=== PATIENT | female | born 1930 ===

== ENCOUNTER 2018-04-12 13:42 | Emergency (ER) | payer MEDICARE ==
[~2018-04-12] VITALS: Ht 167.6 cm; Wt 68.2 kg
[2018-04-12 13:46] VITALS: Ht 167.6 cm; Wt 68.2 kg
[2018-04-12] MEDS ORDERED: COREG6.25 MG PO (13:48)
[2018-04-12] MEDS ORDERED: LANOXIN125 MCG PO (13:48)
[2018-04-12] MEDS ORDERED: COUMADIN3 MG PO (13:48)
[2018-04-12] MEDS ORDERED: ASCORBIC ACID500 MG PO (13:48)
[2018-04-12] MEDS ORDERED: VITAMIN D31000 UNIT PO (13:49)
[2018-04-12] MEDS ORDERED: VITAMIN B-6100 MG PO (13:49)
[2018-04-12 14:19] LABS: BASOPHILS 0.4 % (0-2); EOSINOPHILS 0.6 % (0-7); HEMATOCRIT 40.7 % (36.0-48.0); HEMOGLOBIN 13.6 g/dL (12-16); IMMATURE GRANULOCYTES 0.2 % (0-5); LYMPHOCYTES 22.5 % (15-50); MCH 29.2 pg (26.0-34.0); MCHC 33.4 g/dL (31.0-37.0); MCV 87.5 fL (80.0-100.0); MEAN PLATELET VOLUME 10.3 fL (7.4-10.4); NEUTROPHILS 60.3 % (40-80); PLATELET COUNT 112 10x3/uL (130-400); RBC 4.65 10x6/uL (4.00-5.40); RDW 14.5 % (11.5-14.5); WBC 4.8 10x3/uL (4.8-10.8)
[2018-04-12 14:42] LABS: ANION GAP 14.2 mmol/L (8-16); BILIRUBIN - TOTAL 0.57 mg/dL (0.2-1.3); CALCIUM 8.3 mg/dL (8.5-10.1); CARBON DIOXIDE 25.2 mmol/L (21.0-32.0); CREATININE - SERUM 0.9 mg/dL (0.6-1.3); POTASSIUM - SERUM 3.4 mmol/L (3.5-5.1); PROTEIN - SERUM 6.7 g/dL (6.4-8.2)
[2018-04-12] MEDS ORDERED: LOMOTIL 2.5-0.1 EAC1 PO (19:57)
[2018-04-12] MEDS ORDERED: FLORASTOR250 MG PO (20:01)
[2018-04-12 22:00] VITALS: BP 126/65
== END 2018-04-12 22:00 | disposition home or self-care (01) ==
LOC: D.ER 13:42
PROVIDERS: Emergency Medicine
DX: R19.7 Diarrhea, unspecified (principal)